=== PATIENT | male | born 1970 | race Two or more races ===

== ENCOUNTER 2020-07-16 08:40 | Outpatient (REF) | payer OTHER, SELFPAY | END 2020-07-16 08:41 | disposition home or self-care (01) | LOC: HO.LAB 08:40 | PROVIDERS: Visit Provider Internal Medicine | DX: Z20.828 Contact with and (suspected) exposure to other viral communicable diseases (principal) | CPT/HCPCS: C9803; U0003 ==

== ENCOUNTER 2020-08-23 15:17 | Outpatient (REF) | payer OTHER, SELFPAY | END 2020-08-23 15:18 | disposition home or self-care (01) | LOC: HO.LAB 15:17 | PROVIDERS: Visit Provider Internal Medicine | DX: Z20.828 Contact with and (suspected) exposure to other viral communicable diseases (principal) | CPT/HCPCS: C9803; U0003 ==

== ENCOUNTER 2020-12-10 02:45 | Emergency (ER) | payer OTHER, SELFPAY ==
--- NOTE | ~2020-12-10 | XR_ITS ---
EXAMINATION: XR HIP, LEFT CLINICAL INFORMATION: Left lateral hip pain. COMPARISON: None TECHNIQUE: Two views of the left hip. FINDINGS: Bones and soft tissues are normal. No fracture. Bone island present within the right proximal femoral metaphysis. Alignment is anatomic. Hip joint space is maintained. XR/XR hip LT w PEL1V IMPRESSION: Normal left hip.
[2020-12-10 03:10] VITALS: BP 135/105; PULSE 87; RESP 16; TEMP 36.6; O2SAT 97; BMI 27.6
--- NOTE | 2020-12-10 03:41 | ED.EXTPRO ---
HPI - Extremity Problem General Chief complaint: Extremity Problem Stated complaint: Leg pain Time Seen by Provider: 12/10/20 03:31 Source: patient and science interpreter Mode of arrival: ambulatory History of Present Illness HPI Narrative: This is a 50-year-old male without significant past medical history who presents with having stepped out of the shower a couple days ago and felt significant pain at the lateral aspect of his proximal thigh that he states radiates down the outside of his leg to his ankle. He denies any trauma to this area and states that the pain is worse with sitting and he feels much better standing. Patient states that pain improves with walking. He endorses that he has been through multiple surgeries since childhood to correct significant internal rotation of both legs. He denies any swelling, fevers, chills. Related Data Previous Rx's Medication Instructions Recorded ketorolac 10 mg PO Q6H PRN 5 Days #20 tab 12/10/20 Allergies Allergy/AdvReac Type Severity Reaction Status Date / Time No Known Allergies Allergy Unverified 05/17/20 19:39 [No Known Allergies*] Review of Systems Review of Systems: Pertinent positives and negatives as stated in HPI 10 point review systems is otherwise negative. PMFSH Past Medical History Source: nursing notes reviewed Medical History No known health problems Social History Social History Advance Directives: No Advance Directives Information Provided: No Physical Exam Vital Signs: Vital Signs: Last Vital Signs Temp 97.9 F 12/10/20 03:10 Pulse 87 12/10/20 03:10 Resp 16 12/10/20 03:10 BP 135/105 H 12/10/20 03:10 Pulse Ox 97 12/10/20 03:10 Body Mass Index 27.6 VITAL SIGNS: Reviewed. GENERAL: Well developed, well nourished, in no acute distress. HEAD: Normocephalic/atraumatic OROPHARYNX: no oral lesions noted, posterior pharynx clear NECK: Supple, no adenopathy LUNGS: Normal breath sounds. No adventitious sounds or accessory muscle use. SpO2<97> CARDIOVASCULAR: Regular rate and rhythm without noted murmurs ABDOMEN: Soft, non-tender, non-distended with bowel sounds. Left lower extremity: No obvious deformity, tenderness to palpation over the greater trochanter, pain on hip flexion with internal rotation greater than hip flexion with external rotation, on extension at the hip patient has less pain but it is still present, otherwise neurovascularly intact distal and capillary refill less than 3 seconds. NEUROLOGIC: Alert and oriented x 4. Strength and sensation to light touch were grossly intact x 4. Course Course Course Narrative: 50-year-old male with history and clinical presentation consistent with bursitis but will evaluate for any evidence of acute bony abnormality. Patient was provided with combination analgesics and lidocaine patch. Review of all investigations negative for any a acute findings. Results discussed with the patient at bedside and on re-evaluation patient has had significant improvement of his pain to the point that he is able to set without difficulty. He was encouraged to follow up with his primary care provider as an outpatient for re-evaluation. Discharge Plan Discharge Clinical Impression: Bursitis Patient Disposition: Home, Self-Care Instructions: Hip Bursitis (ED) Additional Instructions: 1. Tylenol 1000 mg, por v?a oral, cada 6 horas seg?n sea necesario para controlar el dolor. No exceda los 4000 mg en 24 horas. 2. Parche de lidoca?na, disponible en todos los [facility], apl?quelo en el ?chato de m?xima sensibilidad benjy se indica en el empaque exterior. 3. Avery un seguimiento con henriquez proveedor de atenci?n primaria en los pr?ximos 2-3 d?as para hiram reevaluaci?n. No dude en volver al servicio de urgencias si experimenta un empeoramiento stephen de jelani s?ntomas. Prescriptions: New ketorolac 10 mg tablet 10 mg PO Q6H PRN (Reason: pain) 5 Days Qty: 20 RF: 0 Referrals: Physician,None [Primary Care Provider] - 2 days Print Language: [place]orese
[2020-12-10] MEDS: Acetaminophen 325 MG TABLET 975 MG PO (04:03)
[2020-12-10] MEDS: Lidocaine 4 % Patch ADH..PATCH 1 PATCH TRANSDERMA (04:03)
[2020-12-10] MEDS: Ketorolac Tromethamine 15 MG/ML VIAL IM (04:03)
== END 2020-12-10 05:31 | disposition home or self-care (01) ==
PROVIDERS: Emergency Provider Student in an Organized Health Care Education/Training Program
DX: M71.552 Other bursitis, not elsewhere classified, left hip (principal); M79.652 Pain in left thigh
CPT/HCPCS: 73502; 96372; 99283; 99284; J1885

== ENCOUNTER 2022-10-13 15:14 | Emergency (ER) | payer SELFPAY ==
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
[2022-10-13 16:26] VITALS: BP 176/119; PULSE 85; RESP 18; TEMP 36.6; O2SAT 97; BMI 26.6
== END 2022-10-13 16:48 | disposition home or self-care (01) ==
LOC: HO.ED 16:47
PROVIDERS: Emergency Provider Emergency Medicine
DX: Z04.1 Encounter for examination and observation following transport accident (principal); M54.50 Low back pain, unspecified
CPT/HCPCS: 99282; 99283

== ENCOUNTER 2024-08-08 10:38 | Outpatient (AMB) | payer OTHER, SELFPAY ==
--- NOTE | 2024-08-08 10:40 | MHC.OFFWIV ---
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 Patient Tobacco Use Status: Never used Tobacco Allergies No Known Allergies [No Known Allergies*] Allergy (Unverified 08/08/24 10:41) Do you need a note to return to daycare/school/sports/work: No HPI HPI Comments History of Present Illness Details History of Present Illness The patient is a 54-year-old male presenting with elevated blood pressure. He reports a long-standing history of fluctuating blood pressure, initially identified in childhood. No dizziness, headaches, nausea, or vomiting are associated with his high blood pressure. The patient's blood pressure was elevated during a dental appointment this morning and he was able to get his dental work done. They recommended he come to the walk-in clinic. He recalls instances where his blood pressure was elevated prior to scheduled medical procedures, such as a vasectomy, where he was advised to delay the procedure due to elevated readings. The patient has been advised previously on lifestyle modifications, including dietary changes, which he reports has been implemented with varied success. He mentions that once his cholesterol levels are managed with atorvastatin (Lipitor), his blood pressure lowers as well. Despite these efforts, his blood pressure remains intermittently high. Currently, at this visit, his blood pressure is critically elevated at 194/110 mmHg. There's no current primary care provider managing his hypertension, and he only has an appointment scheduled for next year at the [facility]. The patient reports consuming alcohol occasionally and denies smoking. Physical Exam General: Cooperative, healthy appearing, comfortable, no acute distress and well developed Orientation: Patient oriented x3 Limitations: No limitations Head: Normal to inspection Ears: Hearing grossly normal bilaterally Nose: Normal external nose present Face and sinus: Normal facial exam Eyes: Appearance normal, both eyes and all related structures Neck: Normal visual inspection and Yes full ROM Respiratory: Normal respiratory effort and able to speak in complete sentences. Clear to auscultation bilaterally Cardiovascular: Regular rate and rhythm. Normal S1 and S2 GI: Normal to inspection. Skin: No rashes or lesions noted Neuro: Patient oriented x3 Extremities: Normal to inspection [facility] Medical History No known health problems Social History Patient Tobacco Use Status: Never used Tobacco Review of Systems Const All systems reviewed & are unremarkable except as noted in HPI and below Physical Exam Vital Signs: Last Vital Signs Pulse 84 08/08/24 10:42 BP 194/110 H 08/08/24 10:42 Pulse Ox 97 08/08/24 10:42 Oxygen Delivery Method Room Air 08/08/24 10:42 BMI result Body Mass Index 27.0 Assessment & Plan Assessment & Plan (1) Elevated blood pressure reading without diagnosis of hypertension: Code(s): R03.0 - Elevated blood-pressure reading, without diagnosis of hypertension Plan: He is encouraged to seek immediate medical evaluation for the persistently high blood pressure, given the risk of complications such as stroke. For Undiagnosed Hypertension: The patient's blood pressure is significantly elevated at 194/110 mmHg, posing an immediate risk for serious cardiovascular events such as stroke. The patient has been advised to seek urgent medical care, ideally in an ER setting, to safely lower his blood pressure under medical supervision. This visit is necessary to ensure no acute end-organ damage and to initiate or adjust antihypertensive therapy appropriately. The patient is encouraged to maintain a low-sodium diet, increase fluid intake, refrain from alcohol consumption, and cease the intake of mushroom coffee to evaluate any potential impact on blood pressure. For Hyperlipidemia: Was managed with atorvastatin, unclear if he is taking currently. Further assessment of hyperlipidemia control should be conducted upon establishing care with a primary care physician, who may adjust therapy based on lipid profile results. The patient must establish care with a primary care provider urgently to facilitate ongoing management and necessary follow-up care for his hypertension and associated cardiovascular risk profile. Patient was agreeable to going to the [facility] Emergency Department. Called [facility] ED with expect. Patient was informed and verbally consented to the use of an ambient scribe for clinic note documentation during this visit. Medications: Discontinued ketorolac Patient received IM Toradol in the emergency department. Discontinued Reason: Patient no longer taking 10 mg PO Q6H 5 days PRN 20 tabs 0RF pain cyclobenzaprine Discontinued Reason: Patient no longer taking 10 mg PO TID PRN 14 tabs 0RF muscle spasm lidocaine 5% leave on most painful area for up to 12 hrs Discontinued Reason: Patient no longer taking 1 patch topical DAILY 15 ea 0RF Coding Level of Care Code New Pt Level 5 (18349) Diagnoses Elevated blood pressure reading without diagnosis of hypertension R03.0
[2024-08-08 10:42] VITALS: BP 194/110; PULSE 84; O2SAT 97; BMI 27.0
== END 2024-08-08 11:10 | disposition home or self-care (01) ==
PROVIDERS: Visit Provider Physician Assistant
DX: R03.0 Elevated blood-pressure reading, without diagnosis of hypertension (principal)

== ENCOUNTER → 2024-08-08 10:38 | Outpatient (BNVA) | payer OTHER, SELFPAY | PROVIDERS: Visit Provider Physician Assistant | DX: R03.0 Elevated blood-pressure reading, without diagnosis of hypertension (principal) | CPT/HCPCS: 99212 ==

== ENCOUNTER 2024-08-08 11:24 | Emergency (ER) | payer OTHER, SELFPAY ==
--- NOTE | ~2024-08-08 | CT_ITS ---
EXAMINATION: CT HEAD WITHOUT CONTRAST CLINICAL INFORMATION: Elevated blood pressure COMPARISON: None available. TECHNIQUE: Contiguous axial imaging was performed from the skull base to vertex without intravenous administration of contrast. This CT examination was performed using dose optimization techniques as appropriate, variously including the following: *Automated exposure control *Adjustment of mA and/or kV according to patient size (this includes techniques or standardized protocols for targeted exams where dose is matched to indication/reason for exam; i.e. extremities or head) *Use of iterative reconstruction technique DLP: 792 mGy-cm RESULTS: There is no evidence of acute intracranial hemorrhage, acute large vessel infarct, midline shift or mass effect. The lowry-white differentiation is preserved. The ventricles and sulci are within normal limits in size and configuration. There is no evidence of hydrocephalus. There are no extraaxial collections. Osseous structures are intact. Bilateral mastoid effusions. CT/CT head/brain wo IV con IMPRESSION: 1. No acute intracranial pathology. 2. Bilateral mastoid effusions. Electronically signed by: Ghislaine Dukes MD 08/08/2024 02:49 PM [facility]
[2024-08-08 11:41] VITALS: BP 200/116; PULSE 90; RESP 20; TEMP 37.2; O2SAT 98; BMI 26.3
--- NOTE | 2024-08-08 11:49 | ECG_ITS ---
Test Reason : HYPERTENSION Blood Pressure : / mmHG Vent. Rate : 085 BPM Atrial Rate : 085 BPM P-R Int : 144 ms QRS Dur : 090 ms QT Int : 350 ms P-R-T Axes : 025 -20 013 degrees QTc Int : 416 ms Normal sinus rhythm Moderate voltage criteria for LVH, may be normal variant ( R in aVL , [place] product ) Borderline ECG No previous ECGs available Referred By: Art Medina Electronically Signed By:MILI WILLIAMSON MD
--- NOTE | 2024-08-08 11:49 | ED.GENADULT ---
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 He denies any complaints. He notes he has had high BP in the past but cannot remember the meds he was on in [place]. He notes he knows he has high BP everyone in his family had it but he thought he could treat it with diet. He reports he feels absolutely fine. MD complaint: asymptomatic HTN Onset (ago): unknown Severity: moderate Relieving factors: none Exacerbating factors: none Associated symptoms: denies other symptoms Treatments prior to arrival: none Related Data Previous Rx's ?Medication ?Instructions ?Recorded ibuprofen 600 mg tablet 600 mg PO Q8H PRN pain #14 tabs 10/13/22 hydrochlorothiazide 25 mg tablet 25 mg PO DAILY #30 tabs 08/08/24 Allergies Allergy/AdvReac Type Severity Reaction Status Date / Time No Known Allergies Allergy Verified 08/08/24 11:48 [No Known Allergies*] Review of Systems Review of Systems: Constitutional : No Fever, No Chills, No Fatigue ENT/Mouth : No sore throat, No Rhinorrhea Eyes: No Eye Pain, No Swelling, No Redness Cardiovascular : No Chest Pain, No SOB, No Dyspnea on Exertion Respiratory : No Cough, No Sputum Gastrointestinal : No Nausea, No Vomiting, No Diarrhea, No abdominal Pain Genitourinary : No Dysuria, No Urinary Frequency, No Hematuria, Musculoskeletal : No joint pain, No Myalgias, No Joint Swelling Skin : No Skin Lesions, No rash Neuro : No Weakness, No Numbness, No Dizziness, no Headache All other systems reviewed and are negative PMFSH Past Medical History Attestation statement: The following information was validated with the patient. Source: old records reviewed Medical History No known health problems Social History Social History Patient Tobacco Use Status: Never used Tobacco Advance Directives: No Advance Directives Information Provided: No Do you have a plan to hurt others: No Plan Physical Exam ED Vital Signs: Vital Signs - 24 hr 08/08/24 11:41 08/08/24 17:17 08/08/24 18:29 Temperature 99.0 F 97.2 F 97.2 F Pulse Rate 90 83 83 Respiratory Rate 20 20 20 Blood Pressure 200/116 H 196/111 H 196/111 H Pulse Oximetry 98 100 100 Oxygen Delivery Method Room Air Room Air Room Air BMI result Body Mass Index 26.3 Appearance: Alert. Oriented X3. No acute distress. Eyes: Pupils equal, round and reactive to light. ENT: Pharynx normal. Neck: Normal inspection. Neck supple. CVS: Normal heart rate and rhythm. Pulses normal. Respiratory: No respiratory distress. Breath sounds normal. Abdomen: Soft and nontender. Skin: Skin warm and dry. Normal skin color. Normal skin turgor. Extremities: No lower extremity edema. No calf ttp Neuro: Oriented X 3. No motor deficit. No sensory deficit. Course Course Course Narrative: RME: 54 yold male presents to the ED for evaluation for elevated blood pressure. patient asymptomatic. Systolic over 200 diastolic over 100. NIH score is 0. EKG head CT labs ordered. Charge nurse informed to bring patient to the ED. Medications Administered Discontinued Medications Generic Name Dose Route Start Last Admin Trade Name Souravq PRN Reason Stop Dose Admin Hydrochlorothiazide 25 mg 08/08/24 18:00 08/08/24 18:27 Hydrochlorothiazide 25 Mg Tablet PO 08/08/24 18:01 25 mg ONCE ONE Administration Protocol Medical Decision Making Medical Decision Making [facility] Narrative: 54 yo male with PMH of HTN not on home meds here with c/o asymptomatic HTN he has no chest pain, headaches, numbness, weakness, or any other concerns or signs of end organ damage he cannot remember what meds he was on in the past - at this time labs, EKG, CT head done. I am going to start him on HCTZ given his LVH on EKG this is not new. 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 08/08/24 12:06 12 12:06 Labs: Lab Results 08/08/24 08/08/24 Range/Units 12: 16:51 WBC 7.3 (4.8-10.8) X10*3/uL RBC 5.06 (4.60-5.80) X10*6/uL Hgb 14.9 (14.0-18.0) g/dl Hct 44.5 (42.0-52.0) % MCV 87.9 (80.0-98.0) fL MCH 29.4 (27.0-33.0) pg MCHC 33.5 (31.0-36.0) g/dl RDW 12.7 (11.0-16.0) % Plt Count 244 (160-400) X10*3/uL MPV 10.9 (9.4-12.4) fL Immature Gran % (Auto) 0.5 H (0.0-0.4) % Neut % (Auto) 57.6 (45-73) % Lymph % (Auto) 31.2 (20-40) % [place] % (Auto) 7.8 (2-11) % Eos % (Auto) 2.5 (0-4) % Baso % (Auto) 0.4 (0-2) % Lymph # (Auto) 2.3 (1.2-4.9) X10*3/uL [place] # (Auto) 0.6 (0.1-1.2) X10*3/uL Eos # (Auto) 0.2 (0.0-0.4) X10*3/uL Baso # (Auto) 0.0 (0.0-0.2) X10*3/uL Abs Immat Gran (auto) 0.04 H (0.00-0.03) X10*3/uL Absolute Neuts (auto) 4.2 (2.0-8.3) x10*3/uL Absolute Nucleated RBC 0.000 (0.0-0.012) X10*3/uL Nucleated RBC % (auto) 0.0 (0.0-0.2) /100WBC PT 10.3 L (10.9-12.4) SEC INR 0.9 (0.9-1.1) APTT 29.3 (26.0-36.8) SEC Sodium 141 (135-145) mmol/L Potassium 3.9 (3.3-5.1) mmol/L Chloride 106 (96-108) mmol/L Carbon Dioxide 29 (22-29) mmol/L Anion Gap 10 L (12-20) BUN 18 H (9-16) mg/dL Creatinine 0.96 (0.5-1.4) mg/dL Estim Creat Clear Calc 92.9 Estimated GFR > 60 Random Glucose 117 H (60-115) mg/dL Calcium 9.8 (8.4-10.2) mg/dL Total Bilirubin 0.7 (0.0-1.0) mg/dL AST 24 (5-37) U/L ALT 34 (0-40) U/L Alkaline Phosphatase 75 (39-117) U/L Troponin I High Sens < 2.7 < 2.7 (<3.5-35.0) ng/L Total Protein 7.9 (6.5-8.0) g/dL Albumin 4.2 (3.5-5.0) g/dL Independent Interpretation I performed an independent interpretation of an: EKG and CT Scan (no ICH, no sinus symptoms or concerns for acute mastoiditis) Interpretation: Rate: 85 Rhythm: NSR [place]: left, LVH Normal P waves. Normal BESSY. Normal QRS complex. ST T wave : normal no ESTELA qTC: 416 prior studies: no acute ischemia The study has been interpreted contemporaneously by me. . Radiology Impression Discussion of test interpretation with radiology: I have reviewed the radiologist's reading. External Record Review External record reviewed: Outpatient record Prescription Management I considered prescription management with: Other Discharge Plan Discharge Clinical Impression: HTN (hypertension) Patient Disposition: Home, Self-Care Instructions: Hydrochlorothiazide (By mouth), Chronic Hypertension (ED) Additional Instructions: return for chest pain, trouble breathing, weakness, numbness or any other concerns follow up with primary care Prescriptions: New hydrochlorothiazide 25 mg tablet 25 mg PO DAILY Qty: 30 2RF No Action ibuprofen 600 mg tablet 600 mg PO Q8H PRN (Reason: pain) Qty: 14 0RF Stand Alone Forms: Work/School Release Interventions: ED Discharge Assessment Last Done: 08/08/24 18:29 Discharge Date/Time: 12/09/24 18:29 Print Language: Albanian
[2024-08-08 12:10] LABS: MANUAL DIFF FLAG NO
[2024-08-08 12:14] LABS: Basophils Percent Auto 0.4 % (0-2); Eosinophils Absolute Auto 0.2 X10*3/uL (0.0-0.4); Eosinophils Percent Auto 2.5 % (0-4); Hematocrit 44.5 % (42.0-52.0); Hemoglobin 14.9 g/dl (14.0-18.0); Imm Gran Abs Auto 0.04 X10*3/uL (0.00-0.03); Imm Gran Pct Auto 0.5 % (0.0-0.4); Lymphocytes Absolute Auto 2.3 X10*3/uL (1.2-4.9); Lymphocytes Percent Auto 31.2 % (20-40); Mean Corpuscular HGB Conc 33.5 g/dl (31.0-36.0); Mean Corpuscular Hemoglobin 29.4 pg (27.0-33.0); Mean Corpuscular Volume 87.9 fL (80.0-98.0); Mean Platelet Volume 10.9 fL (9.4-12.4); Monocytes Absolute Auto 0.6 X10*3/uL (0.1-1.2); Monocytes Percent Auto 7.8 % (2-11); Neutrophils Absolute Auto 4.2 x10*3/uL (2.0-8.3); Neutrophils Percent Auto 57.6 % (45-73); Platelet Count 244 X10*3/uL (160-400); Red Blood Count 5.06 X10*6/uL (4.60-5.80); Red Cell Distribution Width 12.7 % (11.0-16.0); White Blood Count 7.3 X10*3/uL (4.8-10.8)
[2024-08-08 12:19] LABS: INTERNATIONAL NORM RATIO 0.9 (0.9-1.1); Prothrombin Time 10.3 SEC (10.9-12.4)
[2024-08-08 12:21] LABS: Partial Thromboplastin Time 29.3 SEC (26.0-36.8)
[2024-08-08 12:28] LABS: Alanine Aminotransferase 34 U/L (0-40); Albumin Level 4.2 g/dL (3.5-5.0); Alkaline Phosphatase 75 U/L (39-117); Anion Gap 10 (12-20); Aspartate Amino Transferase 24 U/L (5-37); Bilirubin Total 0.7 mg/dL (0.0-1.0); Blood Urea Nitrogen 18 mg/dL (9-16); Calcium 9.8 mg/dL (8.4-10.2); Carbon Dioxide 29 mmol/L (22-29); Chloride 106 mmol/L (96-108); Creatinine Clr Calc Pharmacy 92.9; Estimated Glomerular Filt Rate > 60; Glucose Random 117 mg/dL (60-115); Potassium 3.9 mmol/L (3.3-5.1); Sodium 141 mmol/L (135-145); Total Protein 7.9 g/dL (6.5-8.0)
[2024-08-08 12:34] LABS: Troponin-I High Sensitivity < 2.7 ng/L (<3.5-35.0)
[2024-08-08 17:17] VITALS: BP 196/111; PULSE 83; RESP 20; TEMP 36.2; O2SAT 100
[2024-08-08 17:24] LABS: Troponin-I High Sensitivity < 2.7 ng/L (<3.5-35.0)
[2024-08-08] MEDS: hydroCHLOROthiazide 25 MG TABLET PO (18:27)
[2024-08-08 18:29] VITALS: BP 196/111; PULSE 83; RESP 20; TEMP 36.2; O2SAT 100
== END 2024-08-08 18:29 | disposition home or self-care (01) ==
PROVIDERS: Physician Assistant; Emergency Provider Emergency Medicine
DX: R94.31 Abnormal electrocardiogram [ECG] [EKG] (principal); I10 Essential (primary) hypertension; Z79.899 Other long term (current) drug therapy
CPT/HCPCS: 36415; 70450; 80053; 84484; 85025; 85610; 85730; 93005; 99283; 99284

== ENCOUNTER → 2024-08-08 11:49 | Outpatient (BNV) | payer OTHER, SELFPAY | PROVIDERS: Visit Provider Internal Medicine Cardiovascular Disease | DX: I10 Essential (primary) hypertension (principal) | CPT/HCPCS: 93010 ==

== ENCOUNTER 2024-12-15 04:52 | Emergency (ER) | payer OTHER, SELFPAY ==
--- NOTE | ~2024-12-15 | XR_ITS ---
CLINICAL HISTORY: chest pain 1 view chest x-ray Comparison: None Findings: The lungs are clear. Heart size is normal. No acute fracture. IMPRESSION: No acute cardiopulmonary abnormality. This document has been electronically signed by: Lynette Sheffield on 12/15/2024 06:43:02
[2024-12-15 05:57] LABS: MANUAL DIFF FLAG NO
[2024-12-15 06:02] LABS: Alanine Aminotransferase 22 U/L (0-40); Albumin Level 3.8 g/dL (3.5-5.0); Alkaline Phosphatase 67 U/L (39-117); Anion Gap 11 (12-20); Aspartate Amino Transferase 28 U/L (5-37); Bilirubin Total 1.5 mg/dL (0.0-1.0); Blood Urea Nitrogen 20 mg/dL (9-16); Calcium 8.9 mg/dL (8.4-10.2); Carbon Dioxide 24 mmol/L (22-29); Chloride 110 mmol/L (96-108); Estimated Glomerular Filt Rate > 60; Glucose Random 123 mg/dL (60-115); Magnesium 2.1 mg/dL (1.6-2.6); Potassium 3.9 mmol/L (3.3-5.1); Sodium 141 mmol/L (135-145); Total Protein 6.7 g/dL (6.5-8.0)
--- NOTE | 2024-12-15 06:02 | PC.NURSE ---
pt started during downtime - see downtime paperwork for triage
[2024-12-15 06:03] LABS: Troponin-I High Sensitivity < 2.7 ng/L (<3.5-35.0)
[2024-12-15 06:05] VITALS: BP 147/72; PULSE 70; RESP 18; TEMP 36.8; O2SAT 96
[2024-12-15 06:05] LABS: Basophils Percent Auto 0.6 % (0-2); Eosinophils Absolute Auto 0.2 X10*3/uL (0.0-0.4); Eosinophils Percent Auto 3.7 % (0-4); Hematocrit 40.2 % (42.0-52.0); Hemoglobin 13.6 g/dl (14.0-18.0); Imm Gran Abs Auto 0.02 X10*3/uL (0.00-0.03); Imm Gran Pct Auto 0.4 % (0.0-0.4); Lymphocytes Absolute Auto 1.4 X10*3/uL (1.2-4.9); Lymphocytes Percent Auto 27.5 % (20-40); Mean Corpuscular HGB Conc 33.8 g/dl (31.0-36.0); Mean Corpuscular Hemoglobin 29.4 pg (27.0-33.0); Mean Corpuscular Volume 86.8 fL (80.0-98.0); Mean Platelet Volume 11.4 fL (9.4-12.4); Monocytes Absolute Auto 0.4 X10*3/uL (0.1-1.2); Monocytes Percent Auto 7.7 % (2-11); Neutrophils Absolute Auto 3.1 x10*3/uL (2.0-8.3); Neutrophils Percent Auto 60.1 % (45-73); Platelet Count 177 X10*3/uL (160-400); Red Blood Count 4.63 X10*6/uL (4.60-5.80); Red Cell Distribution Width 12.8 % (11.0-16.0); White Blood Count 5.1 X10*3/uL (4.8-10.8)
--- NOTE | 2024-12-15 06:13 | PC.NURSE ---
pt states he woke around 0200 am with TOVAR/CP and feeling off balance , reports he is currently following with PCP regarding BP medications for high blood pressures. currently on losartan. reports pain is worse with inhalation, at rest pain currently is 5/10. resting comfortably, on registered nurse cardiac, vital signs updated.
--- NOTE | 2024-12-15 06:50 | ED.CHESTPAIN ---
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 He has concerns over hypertension and believes these symptoms are due to having elevated blood pressures and was told by his PCP to come to the ED if he had any symptoms. He states he has started medication for hypertension approximately one week ago. He follows closely with PCP and has an appointment with a continuing education instructor next week. He denies recent travel, sick contacts, recent illness, fever, cough, nausea, vomiting, diarrhea. NOt related to exertion he just woke up. He has not had any travel or recent procedures. MD complaint: chest pain Onset (ago): hour(s) (started 2am today (12/15) ) Timing of current episode: episodic Onset: awoke with symptoms Pain location: substernal Pain radiation: none Severity: mild Quality: aching Relieving factors: nothing Exacerbating factors: nothing Associated symptoms: other (headache, dizziness ) Treatment prior to arrival: none Risk Factors Coronary artery disease risk factors: diabetes, hyperlipidemia and hypertension Related Data Previous Rx's ?Medication ?Instructions ?Recorded ibuprofen 600 mg tablet 600 mg PO Q8H PRN pain #14 tabs 10/13/22 hydrochlorothiazide 25 mg tablet 25 mg PO DAILY #30 tabs 08/08/24 Allergies Allergy/AdvReac Type Severity Reaction Status Date / Time No Known Allergies Allergy Verified 08/08/24 11:48 [No Known Allergies*] Review of Systems Review of Systems: Constitutional : No Weight loss, No Fever, No Chills ENT/Mouth : No sore throat, No Rhinorrhea, Eyes: No Eye Pain, No Swelling Cardiovascular : pos Chest Pain, pos SOB, no Dyspnea on Exertion, No Orthopnea, No Edema, No Palpitations Respiratory : No Cough, No Sputum Gastrointestinal : no Nausea, No Vomiting, No Diarrhea, No abdominal Pain, No Hematochezia, No Melena Genitourinary : No Dysuria, No Urinary Frequency Musculoskeletal : No joint pain, No Myalgias, No Joint Swelling Skin : No Skin Lesions, No rash Neuro : No Weakness, No Numbness, pos Dizziness, pos Headache Psych : No Anxiety/Panic, No Depression Heme/Lymph: No Bruising, No Lymphadenopathy Endocrine : No Polyuria, No Polydipsia All other systems reviewed and are negative Yes all other systems are reviewed and are negative [facility] Past Medical History Attestation statement: The following information was validated with the patient. Source: old records reviewed Medical History No known health problems Social History Social History Patient Tobacco Use Status: Never used Tobacco Smoked in Last 30 Days: No Use of substances other than those prescribed or required for medical reasons: No Advance Directives: No Advance Directives Information Provided: Yes Do you have a plan to hurt others: No Plan Physical Exam Vital Signs: Vital Signs: Last Vital Signs Temp 98.2 F 12/15/24 06:05 Pulse 70 12/15/24 06:05 Resp 18 12/15/24 06:05 BP 147/72 H 12/15/24 06:05 Pulse Ox 96 12/15/24 06:05 O2 Del Method Room Air 12/15/24 06:05 Appearance: Alert. Oriented X3. No acute distress. Eyes: Pupils equal, round and reactive to light. ENT: Pharynx normal. Neck: Normal inspection. Neck supple. CVS: Normal heart rate and rhythm. Pulses normal. Respiratory: No respiratory distress. Breath sounds normal. Abdomen: Soft and nontender. Skin: Skin warm and dry. Normal skin color. Normal skin turgor. Extremities: No lower extremity edema. No calf ttp Neuro: Oriented X 3. No motor deficit. No sensory deficit. CN2-12 intact Medical Decision Making Medical Decision Making MDM Narrative: 54 year old male with PMHx of HTN, DM2, HDL, presents to the Ed today due to chest pain, dizziness and headache that started around 2am today when he woke up for work. He has concerns over hypertension and believes these symptoms are due to having elevated blood pressures and was told by his PCP to come to the ED if he had any symptoms. He states he has started medication for hypertension approximately one week ago. He denies recent travel, sick contacts, recent illness, fever, cough, nausea, vomiting, diarrhea. Patient's vital signs are unremarkable with exception of elevated BP at 147/72, is non toxic appearing and in no acute distress. Patient states he follows PCP closely and is scheduled to see a continuing education instructor next week. Patient was counselled on needing a stress test to identify the cause of his chest pain. Labs are unremarkable and first troponin was within normal limits. EKG with no ST elevations/ depressions, not concerning for ACS, ischemia. Chest x-ray with no acute findings. Chest pain mild, not radiating less likely aortic dissection. No neurological deficits on exam less likely intracranial hemorrhage, or stroke etiology. Will obtain second troponin to rule out ACS. he has no risk factors for VTE and has no signs of DVT, tachycardia or hypoxia Differential Diagnosis Differential Diagnoses: The differential diagnosis associated with the presentation includes ACS, intracranial hemorrhage, stroke, aortic dissection Admission/Observation Consideration of admission/observation: Escalation of care including admission/observation considered work up negative can follow up with PCP for outpatient stress test Lab Data MDM Lab Attestation statement: I reviewed the patient's lab results. 12/15/24 05:21 12/15/24 05:21 Labs: Lab Results 12/15/24 Range/Units 05:21 WBC 5.1 (4.8-10.8) X10*3/uL RBC 4.63 (4.60-5.80) X10*6/uL Hgb 13.6 L (14.0-18.0) g/dl Hct 40.2 L (42.0-52.0) % MCV 86.8 (80.0-98.0) fL MCH 29.4 (27.0-33.0) pg MCHC 33.8 (31.0-36.0) g/dl RDW 12.8 (11.0-16.0) % Plt Count 177 D (160-400) X10*3/uL MPV 11.4 (9.4-12.4) fL Immature Gran % (Auto) 0.4 (0.0-0.4) % Neut % (Auto) 60.1 (45-73) % Lymph % (Auto) 27.5 (20-40) % [place] % (Auto) 7.7 (2-11) % Eos % (Auto) 3.7 (0-4) % Baso % (Auto) 0.6 (0-2) % Lymph # (Auto) 1.4 (1.2-4.9) X10*3/uL [place] # (Auto) 0.4 (0.1-1.2) X10*3/uL Eos # (Auto) 0.2 (0.0-0.4) X10*3/uL Baso # (Auto) 0.0 (0.0-0.2) X10*3/uL Abs Immat Gran (auto) 0.02 (0.00-0.03) X10*3/uL Absolute Neuts (auto) 3.1 (2.0-8.3) x10*3/uL Absolute Nucleated RBC 0.000 (0.0-0.012) X10*3/uL Nucleated RBC % (auto) 0.0 (0.0-0.2) /100WBC Sodium 141 (135-145) mmol/L Potassium 3.9 (3.3-5.1) mmol/L Chloride 110 H (96-108) mmol/L Carbon Dioxide 24 (22-29) mmol/L Anion Gap 11 L (12-20) BUN 20 H (9-16) mg/dL Creatinine 1.08 (0.5-1.4) mg/dL Estim Creat Clear Calc TNP Estimated GFR > 60 Random Glucose 123 H (60-115) mg/dL Calcium 8.9 D (8.4-10.2) mg/dL Magnesium 2.1 (1.6-2.6) mg/dL Total Bilirubin 1.5 H (0.0-1.0) mg/dL AST 28 (5-37) U/L ALT 22 (0-40) U/L Alkaline Phosphatase 67 (39-117) U/L Troponin I High Sens < 2.7 (<3.5-35.0) ng/L Total Protein 6.7 (6.5-8.0) g/dL Albumin 3.8 (3.5-5.0) g/dL Independent Interpretation I performed an independent interpretation of an: EKG and Plain X-Ray (normal ) Interpretation: Rate: 79 Rhythm: NSR [place]: left Normal P waves. Normal BESSY. Normal QRS complex. ST T wave : normal no TE, no acute ischemia qTC: 426 prior studies: no acute ischemia The study has been interpreted contemporaneously by me. . Radiology Impression Discussion of test interpretation with radiology: I have reviewed the radiologist's reading. External Record Review External record reviewed: Inpatient record and Outpatient record Chronic Conditions Patient?s care impacted by: Diabetes, Hypertension and Other (HDL ) Discharge Plan Discharge Clinical Impression: Atypical chest pain Patient Disposition: Home, Self-Care Instructions: Chest Pain (ED) Additional Instructions: labs, EKG and chest xray reassuring return for any worsening symptoms or concerns follow up with your doctor for outpatient stress test - call to schedule appointment with primary care doctor Prescriptions: No Action ibuprofen 600 mg tablet 600 mg PO Q8H PRN (Reason: pain) Qty: 14 0RF hydrochlorothiazide 25 mg tablet 25 mg PO DAILY Qty: 30 2RF Stand Alone Forms: Work/School Release Print Language: Slovenian
[2024-12-15 07:51] LABS: Troponin-I High Sensitivity < 2.7 ng/L (<3.5-35.0)
[2024-12-15 07:58] VITALS: BP 149/93; PULSE 82; RESP 16; TEMP 36.7; O2SAT 98
[2024-12-15 08:24] LABS: Influenza A PCR NEGATIVE (Negative); Influenza B PCR NEGATIVE (Negative); Resp Syncy Virus RNA Qual PCR NEGATIVE (Negative); SARS COV2 PCR INHOUSE NEGATIVE (Negative)
== END 2024-12-15 08:10 | disposition home or self-care (01) ==
PROVIDERS: Emergency Provider Emergency Medicine
DX: R07.89 Other chest pain (principal); R51.9 Headache, unspecified; E11.9 Type 2 diabetes mellitus without complications; I10 Essential (primary) hypertension; E78.5 Hyperlipidemia, unspecified; Z03.818 Encounter for observation for suspected exposure to other biological agents ruled out; Z79.899 Other long term (current) drug therapy
CPT/HCPCS: 0241U; 36415; 71045; 80053; 83735; 84484; 85025; 99283; 99284

== ENCOUNTER → 2024-12-15 05:40 | Outpatient (BNV) | payer OTHER, SELFPAY | PROVIDERS: Emergency Provider Emergency Medicine; Visit Provider Radiology Vascular & Interventional Radiology | DX: R07.9 Chest pain, unspecified (principal) | CPT/HCPCS: 71045 ==